=== PATIENT | male | born 1985 | race African-American/Black ===

== ENCOUNTER 2018-06-17 20:29 | Emergency (ER) | payer SELFPAY ==
[~2018-06-17] VITALS: Ht 177.8 cm; Wt 70.0 kg
[2018-06-17] MEDS ORDERED: METF-960 PO (20:40)
[2018-06-17 20:49] LABS: GLUCOSE,POINT OF CARE 148 MG/DL (70-110)
[2018-06-17 22:40] VITALS: BP 124/74
== END 2018-06-17 22:45 | disposition home or self-care (01) ==
LOC: EMS 20:29
DX: E11.9 Type 2 diabetes mellitus without complications (principal); Z76.0 Encounter for issue of repeat prescription; Z87.891 Personal history of nicotine dependence